=== PATIENT | female | born 1965 | race Caucasian/White ===

== ENCOUNTER 2020-02-24 15:20 | Outpatient (CLI) | payer BC ==
[~2020-02-24] VITALS: Ht 172.7 cm; Wt 84.1 kg
== END 2020-02-24 15:24 | disposition home or self-care (01) ==
LOC: PREOP 15:20
PROVIDERS: ATTEND Surgery
DX: Z01.818 Encounter for other preprocedural examination (principal)

== ENCOUNTER 2020-02-29 12:01 | Day surgery (SDC) | payer BC ==
[~2020-02-29] VITALS: Ht 167.6 cm; Wt 84.1 kg
[2020-02-29] MEDS ORDERED: LACTATED RINGERS 1,000 ML IV ONE (12:03)
[2020-02-29 12:06] VITALS: BP 141/89
[2020-02-29] MEDS ORDERED: LACTATED RINGERS 1,000 ML IV STA (12:10)
--- NOTE | 2020-02-29 13:05 | Progress Note-Pre Operative ---
Pre-Operative Progress Note H&P Reviewed The H&P was reviewed, patient examined and no changes noted. Date Seen by Provider: Feb 29, 2020 Time Seen by Provider: 13:04 Date H&P Reviewed: Feb 29, 2020 Time H&P Reviewed: 13:04 Pre-Operative Diagnosis: screening colonoscopy ERIK TENORIO DO Feb 29, 2020 13:05
[2020-02-29] MEDS ORDERED: PROPOFOL INJECTION 50 ML IV ONE (13:47)
[2020-02-29] MEDS ORDERED: MIDAZOLAM 2 MG/2 ML (VERSED) VIAL ONE (13:47)
[2020-02-29] MEDS ORDERED: proPOfol 200 MG/20 ML (DIPRIVAN) VIAL IV ONE (14:13)
[2020-02-29 14:45] VITALS: BP 129/77
--- NOTE | 2020-02-29 14:45 | Discharge Inst-Simple/Standard ---
Discharge Inst-Standard Patient Instructions/Follow Up Plan of Care/Instructions/FU: 2 weeks Edson Activity as Tolerated: Yes Discharge Diet: Regular Diet ERIK TENORIO DO Feb 29, 2020 14:45
--- NOTE | 2020-02-29 14:47 | Progress Note-Post Operative ---
Post-Operative Progess Note Surgeon (s)/Icing Mixer (s) Surgeon ERIK TENORIO DO Icing Mixer: na Pre-Operative Diagnosis screening colonoscopy Post-Operative Diagnosis colon polyps x 3 Procedure & Operative Findings Date of Procedure 02/29/20 Procedure Performed/Findings colonoscopy with hot bx polypectomy x3 Anesthesia Type per field research assistant Estimated Blood Loss Estimated blood loss (mL): none Specimens/Packing Specimens Removed colon polyps ERIK TENORIO DO Feb 29, 2020 14:47
[2020-02-29 14:50] VITALS: BP 129/77
[2020-02-29 15:15] VITALS: BP 129/77
--- NOTE | 2020-02-29 15:41 | Anesthesia-General Post-Op ---
MAC Patient Condition Mental Status/LOC: Same as Preop Cardiovascular: Satisfactory Nausea/Vomiting: Absent Respiratory: Satisfactory Pain: Controlled Complications: Absent Post Op Complications Complications None Follow Up Care/Instructions Patient Instructions None needed. Anesthesiology Discharge Order Discharge Order Patient is doing well, no complaints, stable vital signs, no apparent adverse anesthesia problems. No complications reported per nursing. MYNOR ROSE CRNA Feb 29, 2020 15:41
--- NOTE | 2020-02-29 23:53 | OPERATIVE REPORT ---
DATE OF SERVICE: 02/29/2020 PREOPERATIVE DIAGNOSIS: Screening colonoscopy. POSTOPERATIVE DIAGNOSIS: Colon polyps x3. SURGEON: Erik Sandhu DO. ANESTHESIA: Per MIRROR MACHINE FEEDER. PROCEDURE: Colonoscopy with hot biopsy polypectomy x3. ESTIMATED BLOOD LOSS: None. COMPLICATIONS: None. INDICATIONS: The patient is a 55-year-old female needing screening colonoscopy. She understands risks and benefits of procedure and wished to proceed with procedure. Consent was signed in the chart. DESCRIPTION OF PROCEDURE: The patient was taken to the endoscopy suite, placed in left lateral recumbent position. Timeout was performed. Digital rectal exam was performed. There were no palpable polyps, masses or ulcerations. Scope was inserted in the rectum and advanced all the way to cecum without difficulty. Prep was adequate with irrigation and suction. There were no polyps, masses or ulcerations in the cecum, and scope was then slowly retracted back, a small polyp was present in the ascending colon, which hot biopsy polypectomy was performed. Scope was then continuously retracted back. No polyps, masses or ulcerations of the transverse, descending colon and sigmoid colon, two small polyps were present, which hot biopsy polypectomy was performed. Scope was then continuously retracted back into the rectum, where it was also retroflexed noting no other pathology. Scope was returned to its normal position, slowly withdrawn until completely removed. The patient tolerated procedure well without any complications. She was taken to recovery room in stable condition. RECOMMENDATIONS: The patient will need repeat colonoscopy in 5 years. Any issues before that be seen at that time. The patient will follow up in the office in 2 weeks to discuss pathology results. Job ID: [id number] DocumentID: [id number] Dictated Date: 02/29/2020 14:49:04 Ground Support Equipment Mechanic Date: 02/29/2020 23:52:37 Dictated By: ERIK SANDHU DO
== END 2020-02-29 15:15 | disposition home or self-care (01) ==
LOC: ENDO 12:01
PROVIDERS: ATTEND Surgery
DX: Z12.11 Encounter for screening for malignant neoplasm of colon (principal); D12.2 Benign neoplasm of ascending colon; K63.5 Polyp of colon; Z80.0 Family history of malignant neoplasm of digestive organs; E66.9 Obesity, unspecified; Z68.29 Body mass index [BMI] 29.0-29.9, adult
CPT/HCPCS: 84703; 88305

== ENCOUNTER 2022-06-07 08:55 | Emergency (ER) | payer BC ==
[~2022-06-07] VITALS: Ht 167 cm; Wt 73.0 kg
[2022-06-07 09:17] VITALS: BP 125/91
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
--- NOTE | 2022-06-07 10:38 | Diagnostic Imaging Report ---
INDICATION: Fall with right foot pain AP, oblique, and lateral views of the right foot are obtained. Questionable lucency in the cuboid, suspicious for nondisplaced fracture. Consider CT for further evaluation. Remaining bony structures appear intact. IMPRESSION: Questionable lucency in the cuboid, suspicious for nondisplaced fracture. Recommend further evaluation with CT. Dictated by: Dictated on workstation # [id number]
== END 2022-06-07 11:51 | disposition home or self-care (01) ==
LOC: EDUNIT# 08:55 → ER 08:58
DX: S92.214D Nondisplaced fracture of cuboid bone of right foot, subsequent encounter for fracture with routine healing (principal); L97.519 Non-pressure chronic ulcer of other part of right foot with unspecified severity; V86.99XD Unspecified occupant of other special all-terrain or other off-road motor vehicle injured in nontraffic accident, subsequent encounter
CPT/HCPCS: 29515; 73630

== ENCOUNTER → 2022-06-11 | Outpatient (CLI) | payer BC ==
[~2022-06-11] MED LIST: OXC5T PO
--- NOTE | 2022-06-11 16:34 | Diagnostic Imaging Report ---
INDICATION: Right ankle pain. COMPARISON: No previous for comparison. FINDINGS: Fiberglas splint is in place. The ankle mortise is in good alignment. Articulating surfaces are smooth. Joint spaces are well-maintained. No fractures are demonstrated. IMPRESSION: Normal right ankle with fiberglass cast. Dictated by: Dictated on workstation # [id number]
--- NOTE | 2022-06-11 16:47 | Diagnostic Imaging Report ---
INDICATION: Left hand injury, follow-up AP, oblique, and lateral views of the left hand are obtained. There is a fracture of the distal aspect of the 5th metacarpal with volar angulation of the distal fragment and displacement. Underlying degenerative changes throughout the interphalangeal joints are noted. IMPRESSION: Underlying chronic changes. Acute fracture of the 5th metacarpal, as above. There is no previous study for comparison. Dictated by: Dictated on workstation # [id number]
== END ==
LOC: ORTHO 10:32
PROVIDERS: ATTEND Orthopaedic Surgery
DX: S62.337D Displaced fracture of neck of fifth metacarpal bone, left hand, subsequent encounter for fracture with routine healing (principal); S82.51XD Displaced fracture of medial malleolus of right tibia, subsequent encounter for closed fracture with routine healing; X58.XXXD Exposure to other specified factors, subsequent encounter
CPT/HCPCS: 73130; 73610; 99203

== ENCOUNTER 2022-06-12 05:36 | Outpatient (CLI) | payer BC ==
[~2022-06-12] VITALS: Ht 167.6 cm; Wt 74.9 kg
[2022-06-12] MEDS ORDERED: OXC5T PO (13:51)
== END 2022-06-12 13:52 | disposition home or self-care (01) ==
LOC: PREOP 05:36
PROVIDERS: ATTEND Orthopaedic Surgery
DX: Z01.818 Encounter for other preprocedural examination (principal); S62.307A Unspecified fracture of fifth metacarpal bone, left hand, initial encounter for closed fracture; X58.XXXA Exposure to other specified factors, initial encounter

== ENCOUNTER 2022-06-17 11:08 | Day surgery (SDC) | payer BC ==
[~2022-06-17] VITALS: Ht 167.6 cm; Wt 74.9 kg
[2022-06-17] VITALS (11 sets, daily range): BP systolic 105–132; BP diastolic 70–96
[2022-06-17] MEDS ORDERED: LACTATED RINGERS 1,000 ML IV PRN (11:15)
[2022-06-17] MEDS ORDERED: ceFAZolin INJECTION 1,000 MG in NS (IVPB) 50 ML IV ONE (11:15)
[2022-06-17] MEDS ORDERED: LIDOCAINE PF 2% 5 ML (XYLOCAINE) VIAL ONE (12:38)
[2022-06-17] MEDS ORDERED: fentaNYL INJ 100 MCG/2 ML AMP ONE (12:38)
[2022-06-17] MEDS ORDERED: ONDANSETRON 4 MG/2 ML (SDV) Z0FRAN ONE (12:38)
[2022-06-17] MEDS ORDERED: proPOfol 200 MG/20 ML (DIPRIVAN) VIAL IV ONE (12:38)
[2022-06-17] MEDS ORDERED: MIDAZOLAM 2 MG/2 ML (VERSED) VIAL ONE (12:38)
--- NOTE | 2022-06-17 12:54 | Progress Note-Pre Operative ---
Pre-Operative Progress Note Date of Available H&P: Jun 11, 2022 Date H&P Reviewed: Jun 17, 2022 Time H&P Reviewed: 12:40 History & Physical: H&P Reviewed, No changes noted Pre-Operative Diagnosis: Right 5th Metacarpal Neck Fracture NORY NAILS MD Jun 17, 2022 12:54
[2022-06-17] MEDS ORDERED: BUPIVACAINE 0.5% 30 ML (SENSORCAINE) VIAL ONE (13:16)
[2022-06-17] MEDS ORDERED: KETOROLAC 30 MG/ML VIAL ONE (13:43)
[2022-06-17] MEDS ORDERED: SEVOFLURANE (ULTANE) 15 ML INHAL SOLN ONE (14:04)
[2022-06-17] MEDS ORDERED: HYDROmorphone 2 MG/ML VIAL (DILAUDID) IV ONE (14:15)
[2022-06-17] MEDS ORDERED: ONDANSETRON 4 MG/2 ML (SDV) Z0FRAN IVP PRN (14:15)
--- NOTE | 2022-06-17 14:19 | Operative Report - Ortho ---
Operative Report Surgeon (s)/Staffing Recruiter (s) Surgeon NORY NAILS MD Staffing Recruiter n/a Pre-Operative Diagnosis Left 5th Metacarpal Neck Fracture Post-Operative Diagnosis same Operative Report Date of Procedure: Jun 17, 2022 Name of Procedure Performed: Open Reduction and Internal Fixation of Left 5th Metacarpal Neck Fracture Description & Findings After obtaining informed consent and marking the patient in the preoperative holding area, patient was taken to the OR and administered IV antibiotics. Surgical timeout was taken. The left upper extremity was prepped and draped in the usual sterile fashion. Attempts were made at closed reduction however the fracture had occurred ~4 weeks ago and had began to heal. Incison was made over the radial border of the distal portion of the 5th metacarpal. Fracture site was exposed. [place] was used to elevated and interrupt soft callus. Once the fracture site was mobile, provisional reduction was performed and a K-wire was introduced into the distal fragment through the incision. The K-wire was then used to joystick and reposition the distal fragment and then driven across the fracture site and into the metacarpal shaft. A second K-wire was then introduced percutaneously and crossed the plane of the other K-wire. Images were obtained and demonstrated appropriate reduction of the fracture with acceptable position of the K-wires. K-wires were bent, cut, and capped. Incision was irrigated with normal saline. Wound was closed with 4-0 vicryl and 4-0 nylon. Injected subcutaneously with local anesthetic and dressed with xeroform, 4x4's, cast padding, ulnar gutter splint, and sharath wraps. Patient tolerated the procedure well and was stable to the recovery room. Anesthesia Type General Estimated Blood Loss minimal Specimen(s) collected/removed None NORY NAILS MD Jun 17, 2022 14:19
[2022-06-17] MEDS ORDERED: OXC5T PO (14:23)
--- NOTE | 2022-06-17 14:27 | Anesthesia-General Post-Op ---
General Patient Condition Mental Status/LOC: Same as Preop Cardiovascular: Satisfactory Nausea/Vomiting: Absent Respiratory: Satisfactory Pain: Controlled Complications: Absent Post Op Complications Complications None Follow Up Care/Instructions Patient Instructions None needed. Anesthesia/Patient Condition Patient Condition Patient is doing well, no complaints, stable vital signs, no apparent adverse anesthesia problems. No complications reported per nursing. D/C home per [facility] Criteria: Yes ANNABELLE BECK CRNA Jun 17, 2022 14:27
== END 2022-06-17 16:14 | disposition home or self-care (01) ==
LOC: SDC 11:08
PROVIDERS: ATTEND Orthopaedic Surgery
DX: S62.337A Displaced fracture of neck of fifth metacarpal bone, left hand, initial encounter for closed fracture (principal); S82.54XA Nondisplaced fracture of medial malleolus of right tibia, initial encounter for closed fracture; V86.99XA Unspecified occupant of other special all-terrain or other off-road motor vehicle injured in nontraffic accident, initial encounter; Z28.310 Unvaccinated for COVID-19
CPT/HCPCS: 26615; 87081; C1713

== ENCOUNTER → 2022-07-04 | Outpatient (CLI) | payer BC | LOC: ORTHO 08:52 | PROVIDERS: ATTEND Orthopaedic Surgery | DX: Z47.89 Encounter for other orthopedic aftercare (principal) ==

== ENCOUNTER → 2022-07-18 | Outpatient (CLI) | payer BC ==
--- NOTE | 2022-07-18 09:07 | Diagnostic Imaging Report ---
INDICATION: Left hand injury AP, oblique and lateral views of left hand are obtained with comparison made to the study of 06/11/2022. Fine bony detail is limited by overlying splint, however, there has been placement of 2 K-wires across the distal 5th metacarpal fracture. Alignment appears to be normal. Fracture line remains visible. Prominent marginal spurring is seen at the 1st interphalangeal joint. IMPRESSION: Anatomic alignment at the internally fixed distal 5th metacarpal fracture without complication identified. Dictated by: Dictated on workstation # [id number]
--- NOTE | 2022-07-18 09:12 | Diagnostic Imaging Report ---
Indication: Follow-up ortho assessment. Time of Exam: 8:38 AM Correlation is made with prior radiographs from 06/11/2022. Fiberglas cast has been removed. Ankle alignment is normal. Ankle mortise is well-maintained. Talar dome is smooth. There is generalized demineralization, perhaps owing to disuse. There appears to be healed fracture of the distal tibia. No acute fracture line is seen. Midfoot unremarkable. IMPRESSION: Generalized demineralization. No acute bony abnormality is detected. Dictated by: Dictated on workstation # [id number]
== END ==
LOC: ORTHO 08:27
PROVIDERS: ATTEND Orthopaedic Surgery
DX: S62.397D Other fracture of fifth metacarpal bone, left hand, subsequent encounter for fracture with routine healing (principal); X58.XXXD Exposure to other specified factors, subsequent encounter; M85.871 Other specified disorders of bone density and structure, right ankle and foot
CPT/HCPCS: 73130; 73610

== ENCOUNTER → 2022-08-08 | Outpatient (CLI) | payer BC ==
--- NOTE | 2022-08-08 10:01 | Diagnostic Imaging Report ---
Indication: Left hand fracture follow-up AP, oblique, lateral views left hand are obtained and compared with 07/18/2022 Compared to the prior study, the surgical pins across the 5th metacarpal fracture have been removed. Overlying cast has been removed. There is anatomic alignment of 5th metacarpal fracture distally, with near complete healing. There are underlying degenerative changes throughout the interphalangeal joints and 1st carpal metacarpal joint. IMPRESSION: Well aligned 5th metacarpal fracture, fracture is nearly completely healed. Removal surgical pins compared to the prior study. Underlying degenerative findings. Dictated by: Dictated on workstation # [id number]
== END ==
LOC: ORTHO 08:04
PROVIDERS: ATTEND Orthopaedic Surgery
DX: Z47.89 Encounter for other orthopedic aftercare (principal); Z87.81 Personal history of (healed) traumatic fracture
CPT/HCPCS: 73130

== ENCOUNTER → 2022-09-05 | Outpatient (CLI) | payer BC ==
--- NOTE | 2022-09-05 10:39 | Diagnostic Imaging Report ---
HAND, LEFT, 3 VIEWS INDICATION: Fracture follow-up COMPARISON: 08/08/2022 TECHNIQUE: 3 views left hand FINDINGS: A fracture of the head neck junction of the 5th metacarpal maintains near anatomic alignment. The fracture line has near completely bridged with new bone formation. No new acute fracture. Degenerative changes at the thumb base and scattered throughout the inner phalangeal joint are similar. IMPRESSION: Near complete healing of the 5th metacarpal fracture. Dictated by: Dictated on workstation # [id number]
== END ==
LOC: ORTHO 07:55
PROVIDERS: ATTEND Orthopaedic Surgery
DX: Z47.89 Encounter for other orthopedic aftercare (principal); S62.307D Unspecified fracture of fifth metacarpal bone, left hand, subsequent encounter for fracture with routine healing; X58.XXXD Exposure to other specified factors, subsequent encounter
CPT/HCPCS: 73130

== ENCOUNTER → 2022-10-08 | Outpatient (CLI) | payer BC | LOC: ORTHO 08:17 | PROVIDERS: ATTEND Orthopaedic Surgery | DX: M25.642 Stiffness of left hand, not elsewhere classified (principal) | CPT/HCPCS: 99213 ==

== ENCOUNTER → 2022-12-17 | Outpatient (CLI) | payer BC ==
--- NOTE | 2022-12-17 17:53 | Diagnostic Imaging Report ---
INDICATION: Left knee pain. Time of Exam: 1:07 PM Four views of the left knee were obtained. Alignment is normal. Joint spaces are well maintained. Articular surfaces are smooth. No fracture, dislocation or effusion is identified. IMPRESSION: No acute bony abnormality is detected. Dictated by: Dictated on workstation # [id number]
== END ==
LOC: ORTHO 13:00
PROVIDERS: ATTEND Orthopaedic Surgery
DX: M25.562 Pain in left knee (principal)
CPT/HCPCS: 73564; G0463; 99213

== ENCOUNTER → 2023-01-09 | Outpatient (CLI) | payer BC ==
--- NOTE | 2023-01-09 09:59 | Diagnostic Imaging Report ---
EXAMINATION: Magnetic resonance imaging of the left knee without intravenous contrast DATE: January 09, 2023. COMPARISON: Left knee radiographs December 17, 2022. INDICATION: 57-year-old female, left knee pain. TECHNIQUE: Multiplanar, multisequence non contrast enhanced MR imaging was accomplished. FINDINGS: MENISCI: There is an approximately 25% volume loss of the anterior horn and body of the medial meniscus without discrete tear. The lateral meniscus is intact. LIGAMENTS AND TENDONS: The anterior and posterior cruciate ligaments are intact. The medial collateral ligament is intact. The iliotibial band, mid third lateral capsular ligament, fibular collateral ligament, biceps femoris tendon and conjoined tendon are intact. The quadriceps tendon and patella ligament are intact. JOINT: There are broad areas of near full-thickness cartilage loss of the mid weightbearing portion of the medial femoral condyle with adjacent mild thinning of the cartilage of the medial tibial plateau. The lateral and patellofemoral compartment cartilage is without identified defect. There is no knee joint effusion, prominent synovitis, or intra-articular body. BONE: There is low-level edema-like signal in the medial femoral condyle and medial tibial plateau which is likely degenerative related. There is no acute fracture, bone contusion, or evidence of osteonecrosis. BURSAE AND SOFT TISSUES: There is a Yu's cyst which is partially ruptured. IMPRESSION: 1. Approximately 25% volume loss of the anterior horn and body of the medial meniscus without discrete medial meniscal tear. Intact lateral meniscus. 2. Intact anterior and posterior cruciate ligaments. Additional ligaments and tendons are intact. 3. Moderate medial compartment arthritis without knee joint effusion. 4. No acute fracture, bone contusion, or evidence of osteonecrosis. 5. Partially ruptured Yu's cyst. Dictated by: Dictated on workstation # [id number]
== END ==
LOC: RAD 08:14
PROVIDERS: ATTEND Nurse Practitioner Family
DX: M17.12 Unilateral primary osteoarthritis, left knee (principal); M66.0 Rupture of popliteal cyst
CPT/HCPCS: 73721